=== PATIENT | female | born 1980 | race African-American/Black ===

== ENCOUNTER 2016-07-30 12:08 | Emergency (ER) | payer MEDICAID, MEDICARE ==
[~2016-07-30] VITALS: Ht 152.4 cm; Wt 50.0 kg
[2016-07-30 12:09] VITALS: BP 181/113; PULSE 99; RESP 17; TEMP 97.8; O2SAT 97
[2016-07-30] MEDS ORDERED: MYCO500 PO (12:51)
[2016-07-30] MEDS ORDERED: TACR1 PO (12:51)
--- NOTE | 2016-07-30 12:51 | PD ---
HPI Chief Complaint: GI Complaint Time Seen by Provider: 12:49 Travel History International Travel<30 days: No Contact w/Intl Traveler<30days: No Traveled to known affect area: No History of Present Illness HPI 35-year-old female with no significant medical history presents to emergency department for evaluation of a hemorrhoid. Patient states it has been there for approximately 2 weeks. She states that she has had hemorrhoids in the past and they are similar to this except they've resolved quickly. She states that it comes out of her rectum and she has to push it back in. She has been using topical Preparation H without any improvement of her symptoms. Denies any heavy lifting or hard bowel movements. No fever or chills. No abdominal pain, nausea, or vomiting. No other symptoms to report. PFSH Past Medical History Medical History: Denies Significant Hx Tetanus Vaccination: Unknown ?: Not LMP: 07/20/16 Past Surgical History Surgical History: No Previous Surgery Social History Alcohol Use: No Tobacco Use: No Substance Use: No Allergies-Medications (Allergen,Severity, Reaction): Coded Allergies: No Known Allergies (Unverified , 07/30/16) Reported Meds & Prescriptions Reported Meds & Active Scripts Active Anucort-Hc Supp (Hydrocortisone Acetate Supp) 25 Mg Supp 25 Mg RECTAL BID PRN Reported Prograf (Tacrolimus) 1 Mg Cap 3 Mg PO BID Cellcept (Mycophenolate Mofetil) 500 Mg Tab 500 Mg PO DAILY Review of Systems Except as stated in HPI: all other systems reviewed are Neg Physical Exam Narrative GENERAL: Well-nourished female patient, in no acute distress SKIN: Warm and dry. HEAD: Atraumatic. Normocephalic. EYES: Pupils equal and round. No scleral icterus. No injection or drainage. ENT: No nasal bleeding or discharge. Mucous membranes pink and moist. NECK: Trachea midline. No JVD. CARDIOVASCULAR: Regular rate and rhythm. No murmur appreciated. RESPIRATORY: No accessory muscle use. Clear to auscultation. Breath sounds equal bilaterally. GASTROINTESTINAL: Abdomen soft, non-tender, nondistended. Hepatic and splenic margins not palpable. RECTAL EXAM: No significant tenderness, Palpable mass consistent with an internal hemorrhoid stool is brown. MUSCULOSKELETAL: No obvious deformities. No clubbing. No cyanosis. No edema. NEUROLOGICAL: Awake and alert. No obvious cranial nerve deficits. Motor grossly within normal limits. Normal speech. PSYCHIATRIC: Appropriate mood and affect; insight and judgment normal. Data Data Last Documented VS Vital Signs Date Time Temp Pulse Resp B/P Pulse Ox O2 Delivery O2 Flow Rate FiO2 07/30/16 12:09 97.8 99 17 181/113 97 MDM Medical Decision Making Medical Screen Exam Complete: Yes Emergency Medical Condition: Yes Medical Record Reviewed: Yes Differential Diagnosis Hemorrhoid internal versus external versus rectal prolapse versus fissure versus abscess Narrative Course 35-year-old female presents to emergency department for evaluation. Assessment and history are consistent with a hemorrhoid. I also explained to the patient that this may be rectal prolapse but advised that she follow-up with gastroenterology if symptoms persist. She'll be given prescription for anucort suppository. She agrees to return immediately with any acute worsening of symptoms. Diagnosis Primary Impression: Hemorrhoids Qualified Code: K64.9 - Hemorrhoids, unspecified hemorrhoid type Referrals: [facility] Patient Instructions: General Instructions, Hemorrhoids (ED) Additional Instructions: Avoid heavy lifting Avoid straining for bowel movement Consider an [id number] stool softener, increasing her fluid intake and fiber intake she has a lot of stools to be soft Seek gastroenterology evaluation Return immediately with any acute worsening of symptoms Med/Other Pt SpecificInfo: Prescription(s) given Scripts Hydrocortisone Acetate Supp (Anucort-Hc Supp)25 Mg Supp25 Mg RECTAL BID PRN ( HEMORRHOIDS) #14 SUPP Ref 0 Prov:Karen Coffey 07/30/16 Disposition: 01 DISCHARGE HOME Condition: Stable Karen Coffey Jul 30, 2016 12:50
[2016-07-30] MEDS ORDERED: ANUC25SU RECTAL (12:52)
== END 2016-07-30 13:08 | disposition home or self-care (01) ==
LOC: NEPB 12:08
DX: K64.9 Unspecified hemorrhoids (principal)
CPT/HCPCS: 99282

== ENCOUNTER 2016-08-06 10:13 | Emergency (ER) | payer MEDICARE, OTHER ==
[~2016-08-06] VITALS: Ht 152.4 cm; Wt 49.0 kg
[~2016-08-06 10:13] MED LIST: ANUC25SU RECTAL; MYCO500 PO; TACR1 PO
[2016-08-06 10:15] VITALS: BP 167/102; PULSE 94; RESP 20; TEMP 97.8; O2SAT 99
[2016-08-06] MEDS ORDERED: NITR0.4O TOP (10:42)
--- NOTE | 2016-08-06 10:42 | PD ---
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 She's been pushing it in and out. She didn't go to dialysis today because she didn't think she could sit in the chair she saw uncomfortable. The pain is severe and she's had some rectal bleeding. She used in anacort which was prescribed to her but isn't helping. She hasn't seen a GI doctor regarding her symptoms. PFSH Past Medical History Genitourinary: Yes (fsgs kidney , dialysis) Tetanus Vaccination: Unknown Influenza Vaccination: No ?: Not Past Surgical History Tonsillectomy: Yes Other Surgery: Yes (kidney trasplant) Social History Alcohol Use: No Tobacco Use: No Substance Use: No Allergies-Medications (Allergen,Severity, Reaction): Coded Allergies: No Known Allergies (Unverified , 08/06/16) Reported Meds & Prescriptions Reported Meds & Active Scripts Active Anucort-Hc Supp (Hydrocortisone Acetate Supp) 25 Mg Supp 25 Mg RECTAL BID PRN Reported Prograf (Tacrolimus) 1 Mg Cap 3 Mg PO BID Cellcept (Mycophenolate Mofetil) 500 Mg Tab 500 Mg PO DAILY Review of Systems Except as stated in HPI: all other systems reviewed are Neg Physical Exam Narrative GENERAL: Well-appearing, no acute distress, nontoxic SKIN: Warm and dry. HEAD: Atraumatic. Normocephalic. ENT: No nasal bleeding or discharge. Moist mucous membranes GI: Thrombosed external hemorrhoid with a punctate area of bright red blood MUSCULOSKELETAL: No obvious deformities. No clubbing. No cyanosis. No edema. NEUROLOGICAL: Awake and alert. No obvious cranial nerve deficits. Motor grossly within normal limits. Normal speech. PSYCHIATRIC: Appropriate mood and affect; insight and judgment normal. Data Data Last Documented VS Vital Signs Date Time Temp Pulse Resp B/P Pulse Ox O2 Delivery O2 Flow Rate FiO2 08/06/16 10:15 97.8 94 20 167/102 99 Room Air MDM Medical Decision Making Medical Screen Exam Complete: Yes Emergency Medical Condition: Yes Interpretation(s) Afebrile, mild tachycardia, hypertensive Differential Diagnosis External hemorrhoid, internal hemorrhoid, rectal prolapse Narrative Course This is a 35-year-old female the history of end-stage renal disease who presents with a painful thrombosed external hemorrhoid. Patient was advised to do sitz baths, she was prescribed nitroglycerin ointment and was recommended to follow up with GI as soon as possible. Diagnosis Primary Impression: Hemorrhoids Qualified Code: K64.9 - Hemorrhoids, unspecified hemorrhoid type Referrals: [facility] Patient Instructions: General Instructions Additional Instructions: Follow-up with GI as soon as possible. Med/Other Pt SpecificInfo: Prescription(s) given Scripts Nitroglycerin (Intra-Anal) (Rectiv)0.4 % Oin1 Inch TOP Q12HR 7 Days Prov:Ana Beck MD 08/06/16 Disposition: 01 DISCHARGE HOME Condition: Stable Ana Beck MD Aug 06, 2016 10:42
== END 2016-08-06 11:09 | disposition home or self-care (01) ==
LOC: NEPC 10:13
DX: K64.9 Unspecified hemorrhoids (principal); Z99.2 Dependence on renal dialysis
CPT/HCPCS: 99283